=== PATIENT | male | born 1965 | race Caucasian/White ===

== ENCOUNTER 2017-03-10 12:01 | Emergency (ER) | payer OTHER ==
[~2017-03-10] VITALS: Ht 188 cm; Wt 118.0 kg
[2017-03-10 12:01] VITALS: TEMP 36.9; Ht 188 cm; Wt 118.0 kg
[~2017-03-10 12:01] MED LIST: ALBUAER2 INH
--- NOTE | 2017-03-10 12:25 | EMERGENCY ROOM VISIT NOTE ---
History Report prepared by Yuan: Richi Noland Under the Supervision of: Dr. Eli Marcus M.D. First contact with patient: 12:11 Chief Complaint: ALLERGIC REACTION Stated Complaint: ALLERGIC REACTION Nursing Triage Summary: Patient arrived via EMS. Pt states approx 1045 he was stung by a bee in his right forearm, was able to remove the stinger. Patient states he became SOB, clammy and wheezy so he took Benadryl 100mg PO and used his albuterol inhaler. He did not use his epipen. Pt states [facility] adminitered Solumedrol 62.5mg IM. Upon arrival patient denies itchy, swollen throat, denies SOB just "a little heavy breath". No wheezing. Pt states neck is stiff and he has a headache above his eyes and right side of head into right side of neck where the neck stiffness is. History of Present Illness The patient is a 51 year old male who presents to the Emergency Room via EMS with complaints of a sudden allergic reaction that occurred around an hour and a half ago. He says that he was stung by a bee in his right forearm, and then became short of breath and clammy. The patient states that he took 100 mg of Benadryl and used his albuterol inhaler. He says that he was able to remove the stinger. The patient notes that he did not use his EpiPen as he was driving. He says that he went to [facility] and was given Solu-Medrol 62.5 mg IM. The patient says that currently his neck is stiff and he is getting a headache. He states that he is getting upper chest pressure that he describes as "restricting" as well. The patient denies a swollen throat, which he did have last time he was stung by bees. Source of History: patient Onset: An hour and a half ago Position: other (global - allergic reaction) Quality: other (stung by 1 bee) Timing: other (sudden) Associated Symptoms: + headache, + SOB Note: Associated symptoms: Clammy. Upper chest pressure. Denies swollen throat. Review of Systems See HPI for pertinent positives & negatives. A total of 10 systems reviewed and were otherwise negative. Past Medical & Surgical Medical Problems: (1) ANXIETY STATE NOS (2) Asthma (3) SANTA'S ESOPHAGUS (4) Benign hypertension (5) CALCULUS OF KIDNEY (6) HEMIPLEGIC MGRN W/OUT INTRACT MGRN W STATUS MIGRAINOSUS (7) LUMBOSACRAL NEURITIS NOS (8) MIGRAINE UNSPECIFIED W/O INTRACT MGRN W/O STATUS MIGRAINOSUS Family History FHx: [place] in first degree male relative BROTHER, Onset:40's - 50 FATHER Hypertension Social History Smoking Status: Never Smoker Alcohol Use: none Drug Use: none Marital Status: in relationship Housing Status: lives with significant other Occupation Status: employed Current/Historical Medications Scheduled Albuterol Hfa (Ventolin Hfa), 2-4 PUFFS INH Q6H Ipratropium-Albuterol (Combivent Respimat), 1 PUFFS INH QID Pantoprazole (Protonix), 40 MG PO DAILY Allergies Coded Allergies: Bee Venom (Verified Allergy, Severe, throat swelling, 03/10/17) Zolpidem (Verified Allergy, Severe, SHORTNESS OF BREATH, 03/10/17) Hydrocodone (Verified Allergy, Mild, UNK, 03/10/17) Codeine (Verified Allergy, Unknown, ?, 03/10/17) Mushroom (Verified Allergy, Unknown, ., 03/10/17) Propoxyphene (Verified Allergy, Unknown, ?, 03/10/17) Shellfish (Verified Allergy, Unknown, ?, 03/10/17) Gabapentin (Verified Adverse Reaction, Intermediate, AGGRESSIVE, 03/10/17) Morphine (Verified Adverse Reaction, Intermediate, not effective, 03/10/17) Nitroglycerin (Verified Adverse Reaction, Intermediate, erratic/unstable b /p, 03/10/17) Meperidine (Verified Adverse Reaction, Mild, hallucinations, 03/10/17) Physical Exam Vital Signs Date Time Temp Pulse Resp B/P (MAP) Pulse Ox O2 Delivery O2 Flow Rate FiO2 03/10/17 14:53 88 18 141/97 96 03/10/17 13:00 81 16 128/92 96 Room Air 03/10/17 12:15 86 14 133/100 94 Room Air 03/10/17 12:13 97 03/10/17 12:01 36.9 90 20 123/103 95 Room Air 03/10/17 12:01 95 Room Air Physical Exam Vital signs reviewed. General: Well-appearing 51 year old male, in no significant distress. HEENT: No scleral icterus, PERRLA, neck supple. Mild uvular swelling. Cardiovascular: Regular rate and rhythm, no extra sounds. Pulmonary: Clear to auscultation bilaterally, normal work of breathing. Abdomen: Soft, nontender, nondistended, positive bowel sounds. Musculoskeletal: Atraumatic, no peripheral edema. Neurologic: Patient awake alert and oriented x 3 Skin: Warm, dry, no rash Medical Decision & Procedures Medications Administered Medications (Trade) Dose Ordered Sig/Shay Route Start Time Stop Time Status Last Admin Dose Admin Ranitidine HCl (zANTac TAB) 150 mg NOW ONCE PO 03/10/17 12:30 03/10/17 12:31 DC 03/10/17 12:48 150 MG Prednisone (PredniSONE TAB) 40 mg NOW STAT PO 03/10/17 12:34 03/10/17 12:35 DC 03/10/17 12:48 40 MG Acetaminophen (Tylenol Tab) 1,000 mg NOW STAT PO 03/10/17 12:50 03/10/17 12:51 DC 03/10/17 13:00 1,000 MG ED Course 1220: Past medical records reviewed. The patient was evaluated in room C2B. A complete history and physical examination was performed. 1222: Ordered Prednisone Tab 60 mg PO. 1230: Ordered Zantac Tab 150 mg PO. 1234: Ordered Prednisone Tab 40 mg PO. 1250: Ordered Tylenol Tab 1000 mg PO. 1425: Upon reevaluation, the patient appeared to have improvement of his symptoms. I discussed findings with him. He verbalized agreement of the treatment plan. He was discharged home. Medical Decision Differential diagnosis: Etiologies such as allergic reaction, anaphylaxis, urticaria, Estevez-Tex syndrome, toxic epidermal necrolysis, erythema multiforme, cellulitis, as well as others were entertained. This pt was evaluated and appeared to be in no significant distress. The patient was placed on school lunch monitor and found to be in a normal sinus rhythm. He was given 40 mg of by mouth prednisone and 150 mg of oral Zantac. The patient states it is difficult to obtain an IV on him. The patient was observed in the emergency department for several hours without recurrent symptoms. He was encouraged to use Benadryl 25-50 mg every 6 hours as needed. He has an EpiPen that he will use for severe allergic symptoms. He'll follow- up with his PCP and return to the ER for worsening of symptoms or any medical concerns. Medication Reconcilliation Current Medication List: was personally reviewed by me Blood Pressure Screening Patient's blood pressure: Elevated blood pressure Blood pressure disposition: Elevated BP felt to be situational Impression Primary Impression: Allergic reaction Scribe Attestation The scribe's documentation has been prepared under my direction and personally reviewed by me in its entirety. I confirm that the note above accurately reflects all work, treatment, procedures, and medical decision making performed by me. Departure Information Dispostion Home / Self-Care Referrals Manas De Leon M.D. (PCP) Patient Instructions ED Allergic Reaction General Other, My [facility] Additional Instructions Diagnosis: Allergic reaction Benadryl 50 mg every 6 hours as needed for allergic symptoms. EpiPen as needed for severe allergic symptoms. Follow-up with your doctor this week for reevaluation. Return to the ER for worsening of symptoms or any medical concerns. Problem Qualifiers Primary Impression: Allergic reaction Encounter type: initial encounter Qualified Codes: T78.40XA - Allergy, unspecified, initial encounter
[2017-03-10] MEDS ORDERED: RANITIDINE HCL 150 MG TAB PO ONE (12:30)
[2017-03-10] MEDS ORDERED: IPRA1AER2 INH (12:42)
[2017-03-10] MEDS ORDERED: PANT40TA PO (12:42)
[2017-03-10] MEDS ORDERED: VNTHFA/IN INH (12:42)
[2017-03-10] MEDS ORDERED: ACETAMINOPHEN 500 MG TAB PO STA (12:50)
[2017-03-10 14:53] VITALS: BP 141/97; PULSE 88; O2SAT 96
== END 2017-03-10 14:53 | disposition home or self-care (01) ==
LOC: EDBD 12:01 → C.EDC 12:02
DX: T63.441A Toxic effect of venom of bees, accidental (unintentional), initial encounter (principal); F41.9 Anxiety disorder, unspecified; J45.909 Unspecified asthma, uncomplicated; K22.70 Barrett's esophagus without dysplasia; I10 Essential (primary) hypertension; Z87.442 Personal history of urinary calculi; G43.909 Migraine, unspecified, not intractable, without status migrainosus; M54.17 Radiculopathy, lumbosacral region; Z82.49 Family history of ischemic heart disease and other diseases of the circulatory system; Z79.899 Other long term (current) drug therapy

== ENCOUNTER 2017-06-06 10:10 | Emergency (ER) | payer OTHER ==
[~2017-06-06] VITALS: Ht 188 cm; Wt 109.0 kg
[~2017-06-06 10:10] MED LIST changes: -ALBUAER2 INH; +IPRA1AER2 INH; +PANT40TA PO; +VNTHFA/IN INH
[2017-06-06 10:15] VITALS: TEMP 37.2; Ht 188 cm; Wt 109.0 kg
[2017-06-06] MEDS ORDERED: SODIUM CHLORIDE 0.9% 1000ML 1,000 ML IV STA (11:01)
[2017-06-06] MEDS ORDERED: ONDANSETRON INJ 2 MG/ML 2 ML VIAL IV STA (11:01)
[2017-06-06] MEDS: HYDROmorphone INJ 1 MG/ML SYR IV STA ×2 (11:01→11:10)
[2017-06-06] MEDS ORDERED: LRS10 PO (11:07)
[2017-06-06] MEDS ORDERED: TPM/50 PO (11:07)
[2017-06-06] MEDS ORDERED: PRED20TA PO (11:07)
[2017-06-06] MEDS ORDERED: VENL75CA PO (11:07)
[2017-06-06] MEDS ORDERED: MAGN400T5 PO (11:07)
[2017-06-06] MEDS ORDERED: OPTIRAY 320 IV PRN (11:15)
[2017-06-06] MEDS ORDERED: HYDROmorphone INJ 1 MG/ML SYR IV STA (11:17)
[2017-06-06 11:19] LABS: BASO % 0.1 %; BASO ABS # 0.01 K/uL (0-0.2); COMPLETE YES; HEMATOCRIT 48.2 % (42-52); IG% 0.6 %; LYMPH % 18.1 %; LYMPH ABS # 1.57 K/uL (1.2-3.4); MEAN CELL VOLUME 89.3 fL (80-100); MEAN CORPUSCULAR HEMOGLOBIN 31.7 pg (25-34); MEAN CORPUSCULAR HGB CONC 35.5 g/dl (32-36); MEAN PLATELET VOLUME 8.6 fL (7.4-10.4); MONO % 11.2 %; PLATELET COUNT 181 K/uL (130-400); WHITE BLOOD COUNT 8.67 K/uL (4.8-10.8)
[2017-06-06] MEDS ORDERED: DiphenhydrAMINE HCL 50 MG/ML VIAL IV STA (11:20)
[2017-06-06] MEDS ORDERED: METHYLPREDNISOLONE 125 MG VIAL IV STA (11:20)
[2017-06-06 11:30] LABS: BUN/CREATININE RATIO 13.4 (10-20); CALCIUM 8.9 mg/dl (8.5-10.1); CREATININE 1.15 mg/dl (0.60-1.40); POTASSIUM 3.6 mmol/L (3.5-5.1)
[2017-06-06] MEDS ORDERED: HYDROmorphone INJ 0.5 MG/0.5 ML SYR IV STA (12:23)
[2017-06-06 12:24] LABS: URINE APPEARANCE CLEAR (CLEAR); URINE BILIRUBIN NEG (NEG); URINE COLOR YELLOW; URINE NITRITE NEG (NEG); URINE PH 5.5 (4.5-7.5); URINE SPECIFIC GRAVITY 1.017 (1.000-1.030); UROBILINOGEN NEG (NEG)
[2017-06-06 12:26] LABS: MANUAL MICROSCOPIC REQUIRED? NO; REVIEW REQ? NO
--- NOTE | 2017-06-06 13:29 | DIAGNOSTIC IMAGING REPORT ---
ABD/PELVIS IV AND ORAL CONT HISTORY: 51 years-old Male ABDOMINAL PAIN/GI acute generalized abdominal pain. Initial exam COMPARISON: CT abdomen and pelvis 06/08/2013 TECHNIQUE: Multiple axial CT images of the abdomen and pelvis were obtained following the intravenous administration of 120 mL Optiray 320. Oral contrast also used. A dose lowering technique was used consistent with the principals of BONG. FINDINGS: Mild dependent bibasilar atelectasis and anterior lung base subsegmental pleural-parenchymal scarring. No pneumoperitoneum. Imaged inferior cardiac chambers are unremarkable. Diffuse fatty infiltration of the liver suspected. Gallbladder, spleen, pancreas and adrenal glands are within normal limits. Approximately 2 calculi are seen within the inferior pole left kidney measuring up to 4 mm. Subcentimeter low attenuating lesions of the kidneys bilaterally suggests cysts. No ureteral calculi or hydronephrosis. Urinary bladder is partially collapsed and demonstrates mild circumferential wall thickening. Prostate is upper limits of normal containing central prostatic calcifications. Mild prostamegaly causes mass effect upon the floor of the urinary bladder. Abdominal aorta is normal in course and caliber. No pathologic adenopathy. No bowel obstruction or focal bowel wall thickening. Colonic diverticulosis without diverticulitis. No evidence of acute appendicitis. Soft tissues are unremarkable. Bones appear intact. Moderate to severe endplate degenerative changes of the lower lumbar spine with facet arthropathy. Straightening of the normal cervical lordosis. IMPRESSION: 1. No acute intra-abdominal or intrapelvic abnormality identified. No bowel obstruction. 2. Colonic diverticulosis without diverticulitis. 3. Left nephrolithiasis without ureteral calculi or obstructive uropathy. 4. Mild wall thickening of the bladder with prostate measuring in the upper limits of normal may reflect sequela of chronic postobstructive changes. Correlate with urinalysis. The above report was generated using voice recognition software. It may contain grammatical, syntax or spelling errors. Electronically signed by: Kelton Carmichael M.D. 06/06/2017 1:28 PM Dictated Date/Time: 06/06/2017 1:22 PM
[2017-06-06 14:12] VITALS: BP 133/85; PULSE 71; O2SAT 96
--- NOTE | 2017-06-06 16:59 | EMERGENCY ROOM VISIT NOTE ---
ED Visit Note First contact with patient: 10:45 Chief Complaint: I am having left upper quadrant pain. History of Present Illness: Mr. Alejandra is a 51 year-old white male who ambulates into the ED accompanied by his complaining of left upper quadrant abdominal pain. Historically patient reports history of Vicente's esophagus and kidney stones. Patient reports a gradual onset of left upper quadrant abdominal pain that started approximately 5 days ago. Since that time the pain has been constant and gradually increasing in intensity. The pain is currently described as sharp and cramping. The pain is nonradiating. He rates his discomfort 8/10. The pain worsens with eating. He has not identified any alleviating factors related to the pain. He reports she has not taken a medication for pain prior to arrival at the hospital. Associated with his pain he reports yesterday he had a fever and an episode of sweats; he reports his fever was 101F, abdominal bloating, he has been nauseated and has had 2 episodes of vomiting and he reports she's had 3-4 episodes of light brown watery stools. Patient denies skin eruptions, skin color changes, upper respiratory tract symptoms, shortness of breath, chest pain, rectal bleeding, black/tarry stools, urinary symptoms, hematuria, back/flank pain. Review of Systems: As noted above in history of present illness. All body systems were reviewed and found to be negative as noted above. Past Medical History: As previously noted, unspecified heart disease, asthma, bronchitis, status post sinus surgery, tonsillectomy, lipoma removal and heart catheterization. Current Medications: Albuterol, Combivent, Protonix, Effexor, prednisone, Topamax, mag oxide and baclofen. Allergies to Medications: Codeine, hydrocodone, meperidine, morphine, nitroglycerin, propoxyphene, zolpidem, gabapentin. Social History: Patient is currently employed; he feels safe in his home environment; he denies tobacco and alcohol use. Physical Examination: Vital Signs: Date Time Temp Pulse Resp B/P (MAP) Pulse Ox O2 Delivery O2 Flow Rate FiO2 06/06/17 14:12 71 18 133/85 96 Room Air 06/06/17 13:50 81 06/06/17 12:00 73 18 135/99 98 Room Air 06/06/17 11:13 75 06/06/17 10:15 37.2 88 18 136/95 97 Room Air GENERAL: 51-year-old male in mild to moderate distress due to pain, nontoxic- appearing, afebrile and hemodynamically stable. NEUROLOGICAL: Awake, alert and oriented to person, place and time. Answering questions appropriately and following commands. Normal gait. Good hand eye coordination. SKIN: Warm, dry and pink. No soft tissue eruptions or trauma noted. HEENT: Atraumatic and normocephalic. PERRLA. Sclera white and conjunctiva pink. Oral cavity moist and pink. Pharynx is nonerythematous or edematous. Speech normal. No lymphadenopathy. Trachea midline. No jugular venous distention. BACK: No tenderness over the bony spine. No CVA tenderness. THORAX: Lungs sounds are clear to auscultation and equal bilaterally with symmetrical chest wall. No wheezing, rales or rhonchi. No crepitus, tenderness , subcutaneous air or deformities noted. HEART: Regular rate and rhythm. No gallops, rubs or murmurs are appreciated. ABDOMEN: Flat and soft with mild tenderness in the left upper and left mid quadrant areas. Positive bowel sounds in all quadrants. No guarding, rigidity or organomegaly. EXTREMITIES: Moves all extremities well on command and with purpose. All distal neurovascular statuses are intact and equal bilaterally. ED Course: Patient is assessed as noted above. Laboratory Testing: Test 06/06/17 10:25 06/06/17 12:00 Range/Units White Blood Count 8.67 4.8-10.8 K/uL Red Blood Count 5.40 4.7-6.1 M/uL Hemoglobin 17.1 14.0-18.0 g/dL Hematocrit 48.2 42-52 % Mean Corpuscular Volume 89.3 80-100 fL Mean Corpuscular Hemoglobin 31.7 25-34 pg Mean Corpuscular Hemoglobin Concent 35.5 32-36 g/dl Platelet Count 181 130-400 K/uL Mean Platelet Volume 8.6 7.4-10.4 fL Neutrophils (%) (Auto) 69.0 % Lymphocytes (%) (Auto) 18.1 % Monocytes (%) (Auto) 11.2 % Eosinophils (%) (Auto) 1.0 % Basophils (%) (Auto) 0.1 % Neutrophils # (Auto) 5.98 1.4-6.5 K/uL Lymphocytes # (Auto) 1.57 1.2-3.4 K/uL Monocytes # (Auto) 0.97 0.11-0.59 K/uL Eosinophils # (Auto) 0.09 0-0.5 K/uL Basophils # (Auto) 0.01 0-0.2 K/uL RDW Standard Deviation 40.9 36.4-46.3 fL RDW Coefficient of Variation 12.7 11.5-14.5 % Immature Granulocyte % (Auto) 0.6 % Immature Granulocyte # (Auto) 0.05 0.00-0.02 K/uL Sodium Level 138 136-145 mmol/L Potassium Level 3.6 3.5-5.1 mmol/L Chloride Level 105 98-107 mmol/L Carbon Dioxide Level 26 21-32 mmol/L Anion Gap 7.0 3-11 mmol/L Blood Urea Nitrogen 15 7-18 mg/dl Creatinine 1.15 0.60-1.40 mg/dl Est Creatinine Clear Calc Drug Dose 99.9 ml/min Estimated GFR () 84.9 Estimated GFR (Non- 73.3 BUN/Creatinine Ratio 13.4 10-20 Random Glucose 95 70-99 mg/dl Calcium Level 8.9 8.5-10.1 mg/dl Total Bilirubin 0.9 0.2-1 mg/dl Direct Bilirubin 0.1 0-0.2 mg/dl Aspartate Amino Transf (AST/SGOT) 18 15-37 U/L Alanine Aminotransferase (ALT/SGPT) 34 12-78 U/L Alkaline Phosphatase 67 45-117 U/L Total Protein 8.1 6.4-8.2 gm/dl Albumin 4.0 3.4-5.0 gm/dl Lipase 322 73-393 U/L Urine Color YELLOW Urine Appearance CLEAR CLEAR Urine pH 5.5 4.5-7.5 Urine Specific Kincaid 1.017 1.000-1.030 Urine Protein NEG NEG Urine Glucose (UA) NEG NEG Urine Ketones NEG NEG Urine Occult Blood NEG NEG Urine Nitrite NEG NEG Urine Bilirubin NEG NEG Urine Urobilinogen NEG NEG Urine Leukocyte Esterase NEG NEG Contrast Abdominal/Pelvic CT: Was reviewed by myself and read by the radiologist showing no acute intra-abdominal or intrapelvic abnormalities, no bowel obstructions, colonic diverticulosis without diverticulitis, left-sided nephrolithiasis without ureter calculus or obstructive uropathy, mild wall thickening of the bladder with prostrate measuring in the upper limits of normal. Patient was hydrated with normal saline, he received 1.5 mg of Dilaudid IV for pain and 4 mg of Zofran IV for his symptoms. Additionally he received 125 mg of Solu-Medrol and 25 mg of Benadryl IV for his current for his seafood allergy reacting with his contrast Patient was reassessed multiple times during his stay in the emergency department. Patient's case was reviewed with Dr. Marcus; we agreed on diagnostic approach, treatment, disposition and plan. Patient was educated about today's findings and instructed on his treatment plan ; he verbalizes understanding and agreement with this plan. Clinical Impression: Left-sided abdominal pain. Decision-Making: Initially my differential diagnosis I considered diverticulitis , bowel obstruction, perforated viscus, kidney stone, pyelonephritis, and other causes. Disposition: Patient discharged home in stable condition accompanied by his ; prior to departure he was reassessed and subjectively reported he was feeling the same. Plan: Patient was encouraged to alternate ibuprofen and acetaminophen every 3 hours as needed for pain. Patient was encouraged to follow-up with his tile presser; he reports he supposed to see his tile presser tomorrow for a scope; I did request that he call his tile presser inform them of today's ED visit. Patient was encouraged to increase clear fluids and stay well-hydrated. Patient is encouraged to continue his other medications. Patient is encouraged return ED for worsening/uncontrolled pain, fevers, uncontrolled vomiting, bloody stools or any new/concerning symptoms.
== END 2017-06-06 14:38 | disposition home or self-care (01) ==
LOC: C.EDB 10:12
DX: R10.12 Left upper quadrant pain (principal); Z87.442 Personal history of urinary calculi

== ENCOUNTER 2017-08-03 06:12 | Emergency (ER) | payer OTHER ==
[~2017-08-03] VITALS: Ht 188 cm; Wt 114.7 kg
[~2017-08-03 06:12] MED LIST changes: +LRS10 PO; +MAGN400T5 PO; +PRED20TA PO; +TPM/50 PO; +VENL75CA88 PO
[2017-08-03 06:14] VITALS: TEMP 36.8; Ht 188 cm; Wt 114.7 kg
[2017-08-03] MEDS ORDERED: TAMS0.4C38 PO (06:29)
[2017-08-03] MEDS ORDERED: AMT50 PO (06:30)
[2017-08-03] MEDS ORDERED: ONDANSETRON INJ 2 MG/ML 2 ML VIAL IV PRN (06:30)
[2017-08-03 06:47] LABS: BASO % 0.5 %; BASO ABS # 0.03 K/uL (0-0.2); EOS ABS # 0.29 K/uL (0-0.5); HEMATOCRIT 45.9 % (42-52); HEMOGLOBIN 16.3 g/dL (14.0-18.0); IG# 0.02 K/uL (0.00-0.02); LYMPH % 27.2 %; LYMPH ABS # 1.57 K/uL (1.2-3.4); MEAN CELL VOLUME 88.6 fL (80-100); MEAN CORPUSCULAR HEMOGLOBIN 31.5 pg (25-34); MEAN CORPUSCULAR HGB CONC 35.5 g/dl (32-36); MEAN PLATELET VOLUME 8.5 fL (7.4-10.4); MONO ABS # 0.58 K/uL (0.11-0.59); NEUT ABS # 3.29 K/uL (1.4-6.5); PLATELET COUNT 136 K/uL (130-400); RED CELL DISTRIBUTION WIDTH CV 12.4 % (11.5-14.5); RED CELL DISTRIBUTION WIDTH SD 39.6 fL (36.4-46.3); WHITE BLOOD COUNT 5.78 K/uL (4.8-10.8)
--- NOTE | 2017-08-03 06:56 | EMERGENCY ROOM VISIT NOTE ---
History Report prepared by Yuan: Katt Moyer Under the Supervision of: Dr. Rojelio Hernandez M.D. First contact with patient: 06:22 Chief Complaint: ABDOMINAL PAIN Stated Complaint: ABD PAIN Nursing Triage Summary: c/o stabbing abdominal pain to LLQ that has been worsening over the past week along with nausea. patient states he has hx of diverticulitis and was recently treated for it last month. patient seen at [place] [facility] for similar symptoms a couple days ago and was told his results were negative. History of Present Illness The patient is a 51 year old male who presents to the Emergency Room with complaints of worsening left lower quadrant abdominal pain beginning a week ago. The patient was seen at [place] ED on August 01, two days ago, where he had a CT done. The patient reports the CT was unremarkable. Per nursing note, on arrival, the patient described his pain as "stabbing". He reports nausea, diarrhea and and inability to drink fluids. The patient has a history of diverticulitis and was last treated for it last month. Source of History: patient Onset: a week ago Position: abdomen (LLQ) Quality: stabbing Timing: worsening Associated Symptoms: + nausea, + diarrhea Review of Systems All systems have been listed, reviewed, and are negative other than those previously mentioned. Please see Additional Medical History Sheet. 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 (7) LUMBOSACRAL NEURITIS NOS (8) MIGRAINE UNSPECIFIED W/O INTRACT MGRN W/O STATUS MIGRAINOSUS Family History FHx: [place] in first degree male relative BROTHER, Onset:40's - 50 FATHER Hypertension Social History Smoking Status: Never Smoker Alcohol Use: none Drug Use: none Marital Status: in relationship Housing Status: lives with significant other Occupation Status: employed Current/Historical Medications Scheduled Albuterol Hfa (Ventolin Hfa), 2-4 PUFFS INH Q6H Amitriptyline Hcl (Elavil), 10 MG PO HS Ipratropium-Albuterol (Combivent Respimat), 1 PUFFS INH QID Magnesium Oxide (Mag-Ox), 400 MG PO DAILY Pantoprazole (Protonix), 40 MG PO DAILY Tamsulosin Hcl (Flomax), 0.4 MG PO DAILY Topiramate (Topamax), 50 MG PO BID Venlafaxine Hcl (Effexor Xr), 75 MG PO DAILY Scheduled PRN Tramadol (Ultram), 50 MG PO Q4H PRN for Pain Allergies Coded Allergies: Bee Venom (Verified Allergy, Severe, throat swelling, 08/03/17) Zolpidem (Verified Allergy, Severe, SHORTNESS OF BREATH, 08/03/17) Hydrocodone (Verified Allergy, Mild, UNK, 08/03/17) Codeine (Verified Allergy, Unknown, ?, 08/03/17) Mushroom (Verified Allergy, Unknown, ., 08/03/17) Propoxyphene (Verified Allergy, Unknown, ?, 08/03/17) Shellfish (Verified Allergy, Unknown, ?, 08/03/17) Gabapentin (Verified Adverse Reaction, Intermediate, AGGRESSIVE, 08/03/17) Morphine (Verified Adverse Reaction, Intermediate, not effective, 08/03/17 ) Nitroglycerin (Verified Adverse Reaction, Intermediate, erratic/unstable b /p, 08/03/17) Meperidine (Verified Adverse Reaction, Mild, hallucinations, 08/03/17) Physical Exam Vital Signs Date Time Temp Pulse Resp B/P (MAP) Pulse Ox O2 Delivery O2 Flow Rate FiO2 08/03/17 08:00 77 20 132/98 100 08/03/17 07:02 71 20 129/90 97 08/03/17 06:14 36.8 91 16 155/103 97 Room Air Physical Exam GENERAL: Patient awake, alert, oriented x 3. Patient follows commands. Patient does not appear toxic. Patient is adequately hydrated and well- nourished. SKIN: No erythema, pallor, cyanosis or rash HEENT: Normal head, pupils equal, reactive to light and accommodation. LUNGS: Clear to auscultation. No wheezes, no rales, no rhonchi. HEART: No murmurs. No gallops. No rubs ABDOMEN: Tender to Left lower quadrant without rebound, or guarding. No masses, no hepatomegaly or splenomegaly. EXTREMITIES: No signs of trauma. No pedal or pretibial edema. No calf or thigh tenderness. NEUROLOGIC: Cranial nerves II-XII within normal limits. No gross motor sensory function deficits. Medical Decision & Procedures ER Provider Diagnostic Interpretation: I reviewed the CT reports from [place] [facility] done on 07/22/17 which showed no signs of diverticulitis or other pathology. Laboratory Results 08/03/17 06:30 Red Blood Count 5.18, Mean Corpuscular Volume 88.6, Mean Corpuscular Hemoglobin 31.5, Mean Corpuscular Hemoglobin Concent 35.5, Mean Platelet Volume 8.5, Neutrophils (%) (Auto) 57.0, Lymphocytes (%) (Auto) 27.2, Monocytes (%) (Auto) 10.0, Eosinophils (%) (Auto) 5.0, Basophils (%) (Auto) 0.5, Neutrophils # (Auto ) 3.29, Lymphocytes # (Auto) 1.57, Monocytes # (Auto) 0.58, Eosinophils # (Auto ) 0.29, Basophils # (Auto) 0.03 08/03/17 06:30 Test 08/03/17 06:30 08/03/17 07:00 White Blood Count 5.78 K/uL (4.8-10.8) Red Blood Count 5.18 M/uL (4.7-6.1) Hemoglobin 16.3 g/dL (14.0-18.0) Hematocrit 45.9 % (42-52) Mean Corpuscular Volume 88.6 fL (80-100) Mean Corpuscular Hemoglobin 31.5 pg (25-34) Mean Corpuscular Hemoglobin Concent 35.5 g/dl (32-36) Platelet Count 136 K/uL (130-400) Mean Platelet Volume 8.5 fL (7.4-10.4) Neutrophils (%) (Auto) 57.0 % Lymphocytes (%) (Auto) 27.2 % Monocytes (%) (Auto) 10.0 % Eosinophils (%) (Auto) 5.0 % Basophils (%) (Auto) 0.5 % Neutrophils # (Auto) 3.29 K/uL (1.4-6.5) Lymphocytes # (Auto) 1.57 K/uL (1.2-3.4) Monocytes # (Auto) 0.58 K/uL (0.11-0.59) Eosinophils # (Auto) 0.29 K/uL (0-0.5) Basophils # (Auto) 0.03 K/uL (0-0.2) RDW Standard Deviation 39.6 fL (36.4-46.3) RDW Coefficient of Variation 12.4 % (11.5-14.5) Immature Granulocyte % (Auto) 0.3 % Immature Granulocyte # (Auto) 0.02 K/uL (0.00-0.02) Anion Gap 4.0 mmol/L (3-11) Est Creatinine Clear Calc Drug Dose 108.0 ml/min Estimated GFR () 90.6 Estimated GFR (Non- 78.2 BUN/Creatinine Ratio 18.6 (10-20) Calcium Level 8.5 mg/dl (8.5-10.1) Total Bilirubin 0.6 mg/dl (0.2-1) Aspartate Amino Transf (AST/SGOT) 20 U/L (15-37) Alanine Aminotransferase (ALT/SGPT) 31 U/L (12-78) Alkaline Phosphatase 60 U/L (45-117) Total Protein 7.4 gm/dl (6.4-8.2) Albumin 3.6 gm/dl (3.4-5.0) Globulin 3.8 gm/dl (2.5-4.0) Albumin/Globulin Ratio 1.0 (0.9-2) Lipase 200 U/L (73-393) Urine Color YELLOW Urine Appearance CLEAR (CLEAR) Urine pH 5.5 (4.5-7.5) Urine Specific [place]den 1.023 (1.000-1.030) Urine Protein NEG (NEG) Urine Glucose (UA) NEG (NEG) Urine Ketones NEG (NEG) Urine Occult Blood NEG (NEG) Urine Nitrite NEG (NEG) Urine Bilirubin NEG (NEG) Urine Urobilinogen NEG (NEG) Urine Leukocyte Esterase NEG (NEG) Laboratory results as stated above per my review. Medications Administered Medications (Trade) Dose Ordered Sig/Shay Route Start Time Stop Time Status Last Admin Dose Admin Ondansetron HCl (Zofran Inj) 4 mg PRN PRN IV 08/03/17 06:30 08/03/17 08:54 DC 08/03/17 06:38 4 MG ED Course 0623: Past medical records reviewed. The patient was evaluated in room B10. A complete history and physical examination was performed. 0630: Ordered Zofran Inj 4 mg IV. 0735: I reviewed the CT reports from [place] [facility] ED done on 07/22/17 which showed no signs of diverticulitis or other pathology. 0737: The patient is still having some tenderness . 0802: Upon reevaluation, the patient appeared to have improvement of his symptoms. I discussed today's findings with him. He verbalized agreement of the treatment plan. The patient was discharged home. Medical Decision I considered multiple diagnoses including diverticulitis, kidney stone, bowel obstruction, urinary tract infection and gastroenteritis. 51-year-old male with left lower quadrant abdominal pain intermittently for the release 1 week. The patient had a CT scan performed at [facility] on the of this month which was apparently negative. That was reevaluated by myself and found to show no signs of significant intra-abdominal pathology including diverticulitis. Blood work and urinalysis were performed today. Please see above. The patient's white count was not elevated. Urinalysis is clean. Exam reveals slight tenderness over the left lower quadrant. The patient does not have rebound or guarding. I'm reluctant to start the patient on more antibiotics for a very questionable diverticulitis. The patient does have follow-up with gastroenterology. The patient will be given a small supply of pain medication. [place] Drug Monitoring Program Search Results: patient reviewed within database, no issues identified Medication Reconcilliation Current Medication List: was personally reviewed by me Blood Pressure Screening Patient's blood pressure: Elevated blood pressure Blood pressure disposition: Referred to PCP Impression Primary Impression: Left lower quadrant abdominal pain of unknown etiology Scribe Attestation The scribe's documentation has been prepared under my direction and personally reviewed by me in its entirety. I confirm that the note above accurately reflects all work, treatment, procedures, and medical decision making performed by me. Departure Information Dispostion Home / Self-Care Prescriptions Tramadol (Ultram) 50 Mg Tab 50 MG PO Q4H Y for Pain, #20 TAB Prov: Rojelio Hernandez M.D. 08/03/17 Referrals Stefany Alvarado D.O. (PCP) Parrish Paredes C.R.N.P. Forms Call Back Authorization, HOME CARE DOCUMENTATION FORM, IMPORTANT VISIT INFORMATION Patient Instructions My [facility] Additional Instructions Take 1 tramadol every 4 hours as needed for moderate to severe pain. Continue all of your current medications as prescribed. Follow-up with your family physician and automotive parts clerk as soon as possible.
[2017-08-03 07:04] LABS: ALBUMIN 3.6 gm/dl (3.4-5.0); CALCIUM 8.5 mg/dl (8.5-10.1); CREATININE 1.09 mg/dl (0.60-1.40); POTASSIUM 3.5 mmol/L (3.5-5.1)
[2017-08-03 07:07] LABS: TOTAL PROTEIN 7.4 gm/dl (6.4-8.2)
[2017-08-03] MEDS ORDERED: TRAM-10 PO (07:50)
[2017-08-03 08:00] VITALS: BP 132/98; PULSE 77; O2SAT 100
[2017-08-04] MEDS ORDERED: NAPR-22 PO (11:56)
== END 2017-08-03 08:04 | disposition home or self-care (01) ==
LOC: C.EDB 06:13
DX: R10.32 Left lower quadrant pain (principal); F41.9 Anxiety disorder, unspecified; J45.909 Unspecified asthma, uncomplicated; I10 Essential (primary) hypertension; G43.909 Migraine, unspecified, not intractable, without status migrainosus; Z87.19 Personal history of other diseases of the digestive system; Z82.49 Family history of ischemic heart disease and other diseases of the circulatory system

== ENCOUNTER 2017-08-04 09:00 | Emergency (ER) | payer OTHER ==
[~2017-08-04] VITALS: Ht 188 cm; Wt 115.3 kg
[~2017-08-04 09:00] MED LIST changes: +AMT50 PO; -LRS10 PO; -PRED20TA PO; +TAMS0.4C38 PO; +TRAM-10 PO
[2017-08-04 09:08] VITALS: TEMP 36.9; Ht 188 cm; Wt 115.3 kg
--- NOTE | 2017-08-04 09:30 | DIAGNOSTIC IMAGING REPORT ---
R KNEE 3 VIEWS CLINICAL HISTORY: b3a pain. Edema. COMPARISON: None. DISCUSSION: The bones and joint spaces appear intact. There is no evidence of fracture, dislocation or bony disease. There is no evidence for soft tissue swelling. IMPRESSION: Negative study. The above report was generated using voice recognition software. It may contain grammatical, syntax or spelling errors. Electronically signed by: Peyman Calhoun M.D. 08/04/2017 9:29 AM Dictated Date/Time: 08/04/2017 9:28 AM
--- NOTE | 2017-08-04 10:22 | EMERGENCY ROOM VISIT NOTE ---
History First contact with patient: 09:57 Chief Complaint: KNEEPAIN Stated Complaint: L KNEE SWELLING History of Present Illness The patient is a 51 year old male who presents to the Emergency Room with complaints of right knee pain and swelling. The patient states the discomfort began last evening, and he describes the pain as soreness. The patient states that 2 AM, he bent his knee back, noticed a bulge on the lateral aspect of his knee. The patient states later on this morning, he did notice some left foot swelling. He does have a history of gout, and states the symptoms feel similar. The patient has been taking tramadol to his abdominal discomfort, and states that has not been helping his symptoms. He did try one Aleve this morning, and that did not help either. The patient describes the pain as sharp , and feels that the joints are swollen. He did recently start a new job last week, and states since that time, he has been feeling more fatigued and has had varying joint pains and muscle aches. He denies any chest pain, dyspnea, dizziness, nausea, vomiting, weakness, paresthesias, or other associated symptoms. Review of Systems A complete 10 point review of systems was reviewed with the patient with pertinent positives and negatives as per history of present illness. All else were negative. 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 (7) LUMBOSACRAL NEURITIS NOS (8) MIGRAINE UNSPECIFIED W/O INTRACT MGRN W/O STATUS MIGRAINOSUS Family History FHx: [place] in first degree male relative BROTHER, Onset:40's - 50 FATHER Hypertension Social History Smoking Status: Never Smoker Alcohol Use: none Drug Use: none Marital Status: in relationship Housing Status: lives with significant other Occupation Status: employed Current/Historical Medications Scheduled Albuterol Hfa (Ventolin Hfa), 2-4 PUFFS INH Q6H Amitriptyline Hcl (Elavil), 10 MG PO HS Ipratropium-Albuterol (Combivent Respimat), 1 PUFFS INH QID Magnesium Oxide (Mag-Ox), 400 MG PO DAILY Naproxen (Naprosyn), 500 MG PO BID Pantoprazole (Protonix), 40 MG PO DAILY Tamsulosin Hcl (Flomax), 0.4 MG PO DAILY Topiramate (Topamax), 50 MG PO BID Venlafaxine Hcl (Effexor Xr), 75 MG PO DAILY Scheduled PRN Tramadol (Ultram), 50 MG PO Q4H PRN for Pain Physical Exam Vital Signs Date Time Temp Pulse Resp B/P (MAP) Pulse Ox O2 Delivery O2 Flow Rate FiO2 08/04/17 11:00 76 20 115/76 97 Room Air 08/04/17 09:08 36.9 83 20 148/103 97 Room Air Physical Exam VITALS: Vitals are noted on the nurse's note and reviewed by myself. Vital signs stable. GENERAL: This is a 51-year-old white male, in no acute distress, nondiaphoretic , well-developed well-nourished. SKIN: The skin was without rashes, erythema, edema, or bruising. There is no tenting of the skin. Capillary reflex less than 2 seconds. HEAD: Normocephalic atraumatic. EARS: External auditory canals clear, tympanic membranes pearly ryan without erythema or effusion bilaterally. EYES: Pupils equal round and reactive to light and accommodation. Conjunctivae without injection, sclerae without icterus. Extraocular movements intact. NOSE: Patent, turbinates without inflammation or discharge. No sinus tenderness. MOUTH: Mucous membranes moist. Tonsils are not enlarged. Pharynx without erythema or exudate. Uvula midline. Airway patent. Tongue does not deviate. NECK: Supple without nuchal rigidity. No lymphadenopathy. No thyromegaly. Cervical spine is nontender. No JVD. HEART: Regular rate and rhythm without murmurs gallops or rubs. LUNGS: Clear to auscultation bilaterally without wheezes, rales or rhonchi. No dullness to percussion. No retractions or accessory muscle use. ABDOMEN: Positive bowel sounds x 4. Normal tympanic percussion. Soft, nontender, without masses or organomegaly. Tinajero sign negative. No guarding or rebound tenderness. MUSCULOSKELETAL: No muscle atrophy, erythema, or significant edema noted. There is very mild edema on the lateral aspect of the right knee. Very mild erythema of the superior aspect of the left ankle. Full range of motion in all extremities. Full flexion of the left knee does elicit tenderness. No tenderness to palpation. Normal gait. Strength 5/5 throughout. NEURO: Patient was alert and oriented to person place and time. Normal sensation to light and sharp touch. Deep tendon reflexes 2+ throughout. No focal neurological deficits. Medical Decision & Procedures ER Provider Diagnostic Interpretation: CBC did not show any leukocytosis. Uric acid was normal at 7.2. Lyme disease testing was negative. R KNEE 3 VIEWS CLINICAL HISTORY: b3a pain. Edema. COMPARISON: None. DISCUSSION: The bones and joint spaces appear intact. There is no evidence of fracture, dislocation or bony disease. There is no evidence for soft tissue swelling. IMPRESSION: Negative study. The above report was generated using voice recognition software. It may contain grammatical, syntax or spelling errors. Electronically signed by: Peyman Calhoun M.D. 08/04/2017 9:29 AM Dictated Date/Time: 08/04/2017 9:28 AM Laboratory Results 08/04/17 10:37 Red Blood Count 5.29, Mean Corpuscular Volume 86.8, Mean Corpuscular Hemoglobin 31.9, Mean Corpuscular Hemoglobin Concent 36.8, Mean Platelet Volume 8.4, Neutrophils (%) (Auto) 57.6, Lymphocytes (%) (Auto) 25.5, Monocytes (%) (Auto) 11.2, Eosinophils (%) (Auto) 5.1, Basophils (%) (Auto) 0.3, Neutrophils # (Auto ) 3.40, Lymphocytes # (Auto) 1.51, Monocytes # (Auto) 0.66, Eosinophils # (Auto ) 0.30, Basophils # (Auto) 0.02 Test 08/04/17 10:37 White Blood Count 5.91 K/uL (4.8-10.8) Red Blood Count 5.29 M/uL (4.7-6.1) Hemoglobin 16.9 g/dL (14.0-18.0) Hematocrit 45.9 % (42-52) Mean Corpuscular Volume 86.8 fL (80-100) Mean Corpuscular Hemoglobin 31.9 pg (25-34) Mean Corpuscular Hemoglobin Concent 36.8 g/dl (32-36) Platelet Count 150 K/uL (130-400) Mean Platelet Volume 8.4 fL (7.4-10.4) Neutrophils (%) (Auto) 57.6 % Lymphocytes (%) (Auto) 25.5 % Monocytes (%) (Auto) 11.2 % Eosinophils (%) (Auto) 5.1 % Basophils (%) (Auto) 0.3 % Neutrophils # (Auto) 3.40 K/uL (1.4-6.5) Lymphocytes # (Auto) 1.51 K/uL (1.2-3.4) Monocytes # (Auto) 0.66 K/uL (0.11-0.59) Eosinophils # (Auto) 0.30 K/uL (0-0.5) Basophils # (Auto) 0.02 K/uL (0-0.2) RDW Standard Deviation 39.3 fL (36.4-46.3) RDW Coefficient of Variation 12.3 % (11.5-14.5) Immature Granulocyte % (Auto) 0.3 % Immature Granulocyte # (Auto) 0.02 K/uL (0.00-0.02) Uric Acid 7.2 mg/dl (2.6-7.2) Lyme Disease IgG Antibody NEG (NEG) Lyme Disease IgM Antibody NEG (NEG) ED Course This is a 51-year-old white male who presents today complaining of spontaneous right knee swelling and pain. He states it occurred in the middle of the night last night. The patient does have a history of gout, and states his symptoms are similar, however he has never had gout in the knee before. He did take one dose of anti-inflammatories, as well as some tramadol which she had prescribed to him for abdominal pain. He states neither of these medications helped. The patient also complains of some generalized fatigue and other muscle and joint pains. Labs were negative for Lyme disease. The patient's uric acid level was normal, and there is no white blood cell count. Based on the patient's symptoms and history, I do suspect gout as the cause of his pain. I encouraged a trial of anti-inflammatory medications which would treat gout or musculoskeletal symptoms. The patient was encouraged to follow up with his primary care provider if he does not experience improvement in symptoms. He was in agreement with this assessment and plan. Discharge instructions reviewed , and the patient was discharged home in good condition. Differential diagnosis includes gout, septic joint, Lyme disease, bursitis, sprain, strain, contusion, fracture, malignancy, and others. Medical Decision Differential diagnosis includes contusion, sprain, strain, Lyme disease, gout, DVT, septic arthritis, malignancy, and others Medication Reconcilliation Current Medication List: was personally reviewed by me Blood Pressure Screening Patient's blood pressure: Normal blood pressure Blood pressure disposition: Elevated BP felt to be situational (initial BP) Impression Primary Impression: Knee pain Additional Impression: Fatigue Departure Information Dispostion Home / Self-Care Condition GOOD Prescriptions Naproxen (Naprosyn) 500 Mg Tab 500 MG PO BID, #60 TAB Prov: Stefany Flores PA-C 08/04/17 Referrals Stefany Alvarado D.O. (PCP) Patient Instructions ED Arthritis Gout, ED Joint Pain, My [facility] Additional Instructions You were seen in the ED today for left knee pain. As discussed, I do suspect gout. Testing for lyme disease was negative, however, if you continue to experience symptoms in 2-3 weeks, you should follow-up with your PCP for possible repeat testing. You were given a prescription for Naproxen 500mg tablets. Take 1 tablet twice daily until symptoms resolution. If you find you need this medication longer than 1 week, follow-up with your PCP for direction on whether or not to continue. You may take 750 mg (1.5 pills) for the first dose. Do not take any other NSAIDs (Motrin, Advil, ibuprofen, Aleve, naproxen) while taking this high dose of Naproxen. Acetaminophen(Tylenol) may be used for fever or pain. Use 1000mg every six hours as needed. Avoid using more than 3000mg in a 24 hour period. This medication may be taken while taking Naproxen. Follow-up with your PCP in 1 week for re-check and ongoing management. Return to the ED for fever, worsening pain or swelling, redness of the joint, or other concerning symptoms. Problem Qualifiers Primary Impression: Knee pain Chronicity: acute Laterality: right Qualified Codes: M25.561 - Pain in right knee Additional Impression: Fatigue Fatigue type: unspecified Qualified Codes: R53.83 - Other fatigue
[2017-08-04 10:50] LABS: BASO % 0.3 %; BASO ABS # 0.02 K/uL (0-0.2); EOS % 5.1 %; HEMATOCRIT 45.9 % (42-52); HEMOGLOBIN 16.9 g/dL (14.0-18.0); IG# 0.02 K/uL (0.00-0.02); LYMPH % 25.5 %; LYMPH ABS # 1.51 K/uL (1.2-3.4); MEAN CELL VOLUME 86.8 fL (80-100); MEAN CORPUSCULAR HEMOGLOBIN 31.9 pg (25-34); MEAN CORPUSCULAR HGB CONC 36.8 g/dl (32-36); MEAN PLATELET VOLUME 8.4 fL (7.4-10.4); MONO % 11.2 %; MONO ABS # 0.66 K/uL (0.11-0.59); NEUT % 57.6 %; PLATELET COUNT 150 K/uL (130-400); RED CELL DISTRIBUTION WIDTH CV 12.3 % (11.5-14.5); RED CELL DISTRIBUTION WIDTH SD 39.3 fL (36.4-46.3); WHITE BLOOD COUNT 5.91 K/uL (4.8-10.8)
[2017-08-04 11:00] VITALS: BP 115/76; PULSE 76; O2SAT 97
[2017-08-04] MEDS ORDERED: NAPR-22 PO (11:56)
== END 2017-08-04 12:14 | disposition home or self-care (01) ==
LOC: C.EDB 09:01
DX: M25.561 Pain in right knee (principal); R53.83 Other fatigue; I10 Essential (primary) hypertension; F41.9 Anxiety disorder, unspecified; J45.909 Unspecified asthma, uncomplicated; Z87.442 Personal history of urinary calculi; Z79.899 Other long term (current) drug therapy; Z82.49 Family history of ischemic heart disease and other diseases of the circulatory system